=== PATIENT | female | born 1990 | race Caucasian/White ===

== ENCOUNTER 2018-02-25 09:05 | Emergency (ER) | payer OTHER ==
[~2018-02-25] VITALS: Ht 160 cm; Wt 70.8 kg
[~2018-02-25 09:05] MED LIST: HYDROCODONE/ACE1 TA1 PO; TRAMADOL50 MG PO; ZOFRAN ODT4 MG PO; [UNRECOGNIZED DRUG - OTHER] TOP
[2018-02-25 09:09] VITALS: BP 154/89
--- NOTE | 2018-02-25 09:28 | ED GI/GU/ABDOMINAL COMPLAINT ---
History of Present Illness General Chief Complaint: Female Urogenital Problems Stated Complaint: "I HAVE A TAMPON STUCK INSIDE OF ME " Source: patient Exam Limitations: no limitations Vital Signs & Intake/Output Vital Signs & Intake/Output Vital Signs Date Time Temp Pulse Resp B/P B/P Pulse O2 O2 Flow FiO2 Mean Ox Delivery Rate 02/25 0909 97.5 96 15 154/89 96 Room Air Room Air Allergies Coded Allergies: No Known Allergies (02/25/18) Reconcile Medications Acyclovir 200 MG CAPSULE 1 TAB PO DAILY ANTIBIOTIC, INFECTION (Reported) Triage Note: PT TO ED FOR C/C OF TAMPON STUCK IN VAGINA X 3 DAYS. HAS DISCOMFORT ESPECIALLY SITTING DOWN. Triage Nurses Notes Reviewed? yes ? N Is pt currently ? No Onset: Abrupt Duration: day(s): Timing: recent history No Modifying Factors: none HPI: 27-year-old female comes into the emergency room for further evaluation of losing tampon in her vagina. Patient reports that she placed 3 days ago and she lost the strings and it's still in there and she cannot get it out. Her GARMENT INSPECTOR doctor is not open today. She was told to come here to have it removed. (Esa Penn) Past History Travel History Traveled to [place] past 21 day No Medical History Any Pertinent Medical History? 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 No (Esa Penn) Review of Systems Review of Systems Constitutional: Reports: no symptoms. EENTM: Reports: no symptoms. Respiratory: Reports: no symptoms. Cardiovascular: Reports: no symptoms. GI: Reports: no symptoms. Genitourinary: Reports: see HPI. Musculoskeletal: Reports: no symptoms. Skin: Reports: no symptoms. Neurological/Psychological: Reports: no symptoms. Hematologic/Endocrine: Reports: no symptoms. Immunologic/Allergic: Reports: no symptoms. All Other Systems: Reviewed and Negative (Esa Penn) Physical Exam Physical Exam General Appearance: well developed/nourished, no apparent distress, alert, awake Head: atraumatic, normal appearance Eyes: Bilateral: normal appearance, EOMI. Ears, Nose, Throat, Mouth: hearing grossly normal, moist mucous membrane Neck: normal inspection Respiratory: no respiratory distress Gastrointestinal: soft, non-tender Pelvic: FOREIGN BODY REMOVAL, NO DISCHARGE, NO ERYTHEMA, Back: normal inspection Extremities: normal range of motion Neurologic/Psych: awake, alert, oriented x 3, normal gait Skin: intact, normal color Core Measures ACS in differential dx? No Sepsis Present: No Sepsis Focused Exam Completed? No (Esa Penn) Progress Differential Diagnosis: VAGINAL FOREIGN BODY, TOXIC SHOCK SYNDROME, SEPSIS, Plan of Care: 02/25/2018 10:09:01 AM Form body successfully removed. Patient clinically looks well. She does not appear to be toxic-appearing. No need for antibiotics at this time. Initial ED EKG: none (Esa Penn) Departure Departure Disposition: HOME OR SELF CARE Condition: Stable Clinical Impression Primary Impression: Vaginal foreign body Referrals: Tahir Haro MD (PCP/Family) Additional Instructions: Return if any concerns worsening symptoms. Please go over all results of today's visit with your primary care doctor. Contact your primary care doctor to let them know you were here in the emergency room. There may be nonspecific findings which may not be related to your visit today here in the emergency room but may require further evaluation and chronic monitoring by your primary care doctor. If you had a laceration today the chance of foreign body always remains. You should follow-up with your primary care doctor for recheck in 3-5 days for a wound check. If you had an x-ray done there is a chance that a fracture could have been missed on initial read and you should follow-up with your primary care doctor for repeat x-rays if symptoms persist. If your blood pressure was elevated here in the emergency room please have rechecked by [facility] primary care doctor within the next 48. If you were prescribed a narcotic here in the emergency room or any type of controlled substances you're not allowed to drive while taking this medication or operate any type of heavy machinery. Narcotics can make you feel lightheaded dizziness nausea and can cause constipation. You may need to filler picker a stool softener. Thank you for choosing [facility] emergency room. Please return to the emergency room immediately if you have any other concerns worsening of symptoms. Departure Forms: Customer Survey General Discharge Information (Esa Penn) PA/SALES SUPERINTENDENT Co-Sign Statement Statement: ED Attending supervision documentation- I saw and evaluated the patient. I have also reviewed all the pertinent lab results and diagnostic results. I agree with the findings and the plan of care as documented in the PA's/SALES SUPERINTENDENT's documentation. x I have reviewed the ED Record and agree with the PA's/SALES SUPERINTENDENT's documentation. [] Additions or exceptions (if any) to the PAs/SALES SUPERINTENDENT's note and plan are summarized below: [] (Lesvia PINO,Leeroy)
[2018-02-25] MEDS ORDERED: ACYCLOVIR200 M1 PO (10:00)
== END 2018-02-25 10:10 ==
LOC: ERH 09:05
DX: T19.2XXA Foreign body in vulva and vagina, initial encounter (principal)